=== PATIENT | female | born 2000 | race Caucasian/White ===

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

== ENCOUNTER 2021-07-23 14:17 | Emergency (ER) | payer OTHER, SELFPAY ==
--- OUTSIDE RECORDS SUMMARY | 2021-07-23 14:19 | XMS REPORT | Continuity of Care Document ---
:2000 Author Organization [facility] t Address [address] [place] [address] Dr. [address] [place] [address] Care Team Providers Name Role Phone Jose Maria Edouard MD Primary Care Physician TRA Attending Clinician Unavailable Dany BENITEZ Attending Clinician Unavailable Emmanuel PRYOR Attending Clinician Emmanuel KIMBLE N Attending Clinician Kaity SABA Attending Clinician Andrew Izquierdo Attending Clinician Jose Maria Edouard MD Attending Clinician 1, Lab Attending Clinician Unavailable Doctor Unassigned, Name Attending Clinician Unavailable Payers Payer Name Policy Type Policy Number Effective Date Expiration Date S [place] [employer] [id number] 2021 HEALTH 00:00:00 [place] [id number] 2019 WOMEN 00:00:00 Problems Condition Condition Condition Status Onset Resolution Last Treating Co mments Source Name Details Category Date Date Treatment Clinician Date Tobacco Tobacco Disease Active 2020-07 Univers use use 0-06 ity of 00:00: [place] [address] [facility] Fatigue, Fatigue, Disease Active 2020-07 Unive rs unspecifie unspecifie 0-06 it y of d type d type 00:00: [place] [facility] Easy Easy Disease Active 2020-07 Univers bruising bruising 0-06 ity of 00:00: [place] [address] [facility] Allergies, Adverse Reactions, Alerts Allergy Allergy Status Severity Reaction(s) Onset Inactive Treating Comm ents Source Name Type Date Date Clinician NO KNOWN Drug Active Univers ALLERGIE Class ity of [facility] Social History Social Habit Start Date Stop Date Quantity Comments Source History SDOH University o f Alcohol Frequency [place] [facility] History SDOH University o f Alcohol Std [place] [facility] Drinks Branch History SDOH University o f Alcohol Binge [place] [facility] Exposure to Not sure University of SARS-CoV-2 [facility] (event) Branch Tobacco use and 2021-04-16 2021-04-16 Never used Universit y of exposure [facility]:00:00 [facility] Alcohol Comment 2021-04-16 2021-04-16 social Universit y [facility] 00:00:00 [facility] Tobacco Comment 2021-04-16 2021-04-16 vapes Universit y of 00:00:00 00:00:00 [facility] Alcohol intake 2021-04-16 2021-04-16 Current drinker Unive rsity of 00:00:00 00:00:00 of alcohol [facility] (finding) [place] Sex Assigned At [birth year] Universit y [facility] 00:00:00 00:00:[facility] Smoking Status Start Date Stop Date Source Current every day smoker 2021-04-16 00:00:00 Uni versity [facility] Medications Ordered Filled Start Stop Current Ordering Indication Dosage Frequency Signature Comments Components Source Medication Medication Date Date Medication? Clinician (SIG) Name Name No known 2020-07 No Univers medications 0-06 ity of 13:53: [address] No known 2020-07 No Univers medications 0-06 ity of 13:53: [address] No known 2020-07 No Univers medications 0-06 ity of 13:53: [address] Immunizations Ordered Filled Immunization Date Status Comments Sourc e Immunization Name Name TDAP (ADACEL) 2019-01-26 Completed University of VACCINE 00:00:00 [facility] TDAP (ADACEL) 2019-01-26 Completed University of VACCINE 00:00:00 [facility] TDAP (ADACEL) 2019-01-26 Completed [facility] VACCINE 00:00:00 [facility] Influenza Virus 2018-09-06 Completed Universit y of Vaccine Quad .5 mL 00:00:00 [facility] 6+ [place] Branch Influenza Virus 2018-09-06 Completed Universit y of Vaccine [place] .5 mL 00:00:00 [facility] 6+ MO [place] Influenza Virus 2018-09-06 Completed Universit y of Vaccine [place] .5 mL 00:00:00 [facility] 6+ [place] Vital Signs Vital Name Observation Time Observation Value Comments Source Systolic blood 2021-04-16 18:49:00 124 mm[Hg] Univer sity of [facility] Diastolic blood 2021-04-16 18:49:00 78 mm[Hg[facility] Heart rate 2021-04-16 18:49:00 102 /min [facility] Body temperature 2021-04-16 18:49:00 36.5 Yesenia [facility] Respiratory rate 2021-04-16 18:49:00 18 /min [facility] Body height 2021-04-16 18:49:00 167.6 cm [facility] Body weight 2021-04-16 18:49:00 67.586 kg [facility] BMI 2021-04-16 18:49:00 24.05 kg/m2 [facility] Procedures Procedure Date / Time Performed Performing Clinician Sourc e POCT TEST 2021-04-16 19:21:00 Shama eBnitez [facility] Encounters Start End Encounter Admission Attending Care Care Encounter Source Date/Time Date/Time Type Type Clinicians Facility Department ID 2021-06-06 2021-06-06 Emergency [facility] [id number] 00:00:00 00:00:00 JONO [address] 2021-04-30 2021-04-30 Outpatient R EMMANUEL [facility] [id number] Univers 15:15:00 15:15:00 SHAMA [id number] anabel [facility] 2021-04-30 2021-04-30 Outpatient Ama BENITEZ [facility] [id number] Univers 15:15:00 15:15:00 SHAMA little [facility] 2021-04-17 2021-04-17 Telephone Emmanuel MIBRUCE [id number] Univers 00:00:00 00:00:00 Shama DRIER AND EVAPORATOR OPERATOR [id number] it y of [facility] [id number] Remy as MATERNAL [phone] [facility] ical & CHILD [address] [place] [address] 2021-04-16 2021-04-16 Office [facility] [id number] [facility] 13:38:41 14:26:57 Visit Shama Saenz DRIER AND EVAPORATOR OPERATOR [id number] it y [facility] [id number] Remy as MATERNAL [phone] [facility] & CHILD [address] [place] [address] 2021-04-16 2021-04-16 [facility] [id number] Univers 09:30:00 09:30:00 SHAMA [id number] [facility] 2021-04-16 2021-04-16 [facility] [id number] Univers 09:30:00 09:30:00 SHAMA little [facility] 2019-03-28 2019-03-28 [facility]ine [facility] [id number] 09:25:07 10:07:02 Miriam Wolf [id number] Visit [place] [id number] Professio [phone] [address] 2019-03-24 2019-03-24 [facility]ine [facility] [id number] 10:47:40 11:22:49 Miriam Wolf [id number] Visit [place] [id number] Professio [id number] [address] 2019-03-23 2019-03-23 Emergency [facility] [id number] 14:51:40 16:59:00 Roberto Carlos Wolf [id number] [place] [id number] [place] [id number] [id number] 2019-03-21 2019-03-21 Routine Michelle Edouard [facility] [id number] 11:02:32 11:48:59 Jose Maria Wolf [id number] Visit [place] [id number] Professio [id number] [address] 2019-03-21 2019-03-21 Telephone Michelle Edouard [facility] [id number] 00:00:00 00:00:00 Cam Luciano [id number] [place] [id number] Professio [id number] [address] 2019-03-16 2019-03-16 Chemical Compounder 1, Adc Lab [facility] [id number] 15:34:30 15:49:30 Visit Luciano [id number] [place] [id number] [place] [id number] [id number] 2019-03-15 2019-03-15 Routine Kaity [facility] [id number] 16:16:09 17:23:12 Miriam Luciano [id number] Visit [place] [id number] [phone] [address] 2019-03-15 2019-03-15 Orders Doctor CASEY [id number] 00:00:00 00:00:00 Only Unassigned, HENNY [id number] [place] [facility] [id number] [id number] Results Test Description Test Time Test Comments Results Result Comments Source POCT TEST 2021-04-16 19:21:00 Test Item Value Reference Range Interpretation Comme nts POCT PREG (test code = 1605) Negative On board controls acceptable with C Line (test code = 3574) Yes POCT PREG LOT # (test code = 3575) POCT PREG TEST DATE (test code = 3576) [id number] 19:21:00 Test Item Value Reference Range Interpretation Comments POCT PREG (test code = 1605) Negative On board controls acceptable with C Yes Line (test code = 3574) POCT PREG LOT # (test code = 3575) POCT PREG TEST DATE (test code = 3576) [facility]
--- NOTE | 2021-07-23 15:08 | ER ---
Nurse's Notes [facility] Name: Natacha Porter Age: 21 yrs Sex: Female : 2000 Arrival Date: 07/23/2021 Time: 14:21 Bed Waiting Private MD: Diagnosis: ED Course: 07/23 14:21 Patient arrived in ED. as Administered Medications: No medications were administered Outcome: 15:07 Patient left the ED. jl7 Signatures: Zainab William Jahala, RN RN jl7
== END 2021-07-23 15:07 | disposition left against medical advice (07) ==
LOC: ER 14:17
DX: Z02.9 Encounter for administrative examinations, unspecified (principal)

== ENCOUNTER 2022-01-26 18:53 | Emergency (ER) | payer OTHER ==
--- NOTE | 2022-01-26 21:44 | RAD REPORT ---
EXAM DESCRIPTION: US - Transvaginal OB - 01/26/2022 9:33 pm CLINICAL HISTORY: with abdominal pain COMPARISON: January 24, 2022 FINDINGS: The uterus measures 8 x 5 x 4 centimeters. A gestational sac measuring 8 x 2 x 5 millimet ers is present within the uterine body. It has migrated from the fundus since the prior exam. A pole is not demonstrated Neither ovary visualized secondary to overlying bowel gas The right and left adnexa unremarkable No significant free fluid IMPRESSION: Intrauterine with an estimated gestational age 5 weeks 2 days. The gestational sac has migrated from the fundus to the uterine body. I suspect this represents an impending abortio n. However, it is recommended that the patient have a followup endovaginal sonogram in 1 week for re- evaluation
--- NOTE | 2022-01-26 21:56 | ER ---
Nurse's Notes [facility] Name: Natacha Porter Age: 21 yrs Sex: Female : 2000 Arrival Date: 01/26/2022 Time: 19:32 Bed 27 Private MD: Diagnosis: Incomplete spontaneous without complication Presentation: 01/26 19:33 Chief complaint: Pt reports she is approx 5 weeks , seen in ED 2 days ago for hb vaginal bleeding, told to come back today for more tests. Reports heavy vaginal bleeding with clots since this morning. Coronavirus screen: At this time, the client does not indicate any symptoms associated with coronavirus-19. Ebola Screen: No symptoms or risks identified at this time. Risk Assessment: Do you want to hurt yourself or someone else? Patient reports no desire to harm self or others. Onset of symptoms was January 26, 2022. 19:33 Method Of Arrival: Ambulatory hb 19:33 Acuity: CARMEN 3 hb 21:05 Initial Sepsis Screen: Does the patient meet any 2 criteria? No. Patient's initial vc1 sepsis screen is negative. Does the patient have a suspected source of infection? No. Patient's initial sepsis screen is negative. Triage Assessment: 19:35 General: Appears in no apparent distress. Behavior is calm, cooperative. Pain: Pain hb currently is 10 out of 10 on a pain scale. Neuro: Level of Consciousness is awake, alert, obeys commands, Oriented to person, place, time, situation. Cardiovascular: Patient's skin is warm and dry. Respiratory: Respiratory effort is even, unlabored, Respiratory pattern is regular, symmetrical. : Reports vaginal bleeding that is bright red, with clots, heavy flow. CLERICAL ADVISER: 21:53 4, 2, Living 1, LMP 01/02/2022 kb Historical: - Allergies: 19:35 No Known Allergies; hb - PMHx: 19:35 acid reflux; Asthma; hb - Immunization history:: Adult Immunizations up to date. - Social history:: Smoking status: Patient denies any tobacco usage or history of. Screenin:04 Abuse screen: Denies threats or abuse. Nutritional screening: No deficits noted. vc1 Tuberculosis screening: No symptoms or risk factors identified. Fall Risk None identified. Assessment: 21:05 Obstetrical Assessment: General assessment: awake and alert. vc1 22:10 Reassessment: No changes from previously documented assessment. vc1 Vital Signs: 19:33 BP 116 / 64; Pulse 74; Resp 16; Temp 97.8; Pulse Ox 100% on R/A; Weight 72.57 kg; hb Height 5 ft. 5 in. (165.10 cm); Pain 10/10; 21:04 BP 104 / 66; Pulse 75; Pulse Ox 100% on R/A; vc1 19:33 Body Mass Index 26.63 (72.57 kg, 165.10 cm) hb Vitals: 21:05 Heart Tones Too early in , vaginal ultrasound ordered.. vc1 ED Course: 19:32 Patient arrived in ED. hb 19:35 Triage completed. hb 19:35 Arm band placed on. hb 19:36 Mariana Short FNP-C is PHCP. kb 19:36 Alexander Wolfe MD is Attending Physician. kb 19:51 Anamaria Arana RN is Primary Nurse. vc1 21:04 No provider procedures requiring assistance completed. Patient did not have IV access vc1 during this emergency room visit. 21:05 Patient has correct armband on for positive identification. Pulse ox on. NIBP on. vc1 21:36 US Transvaginal Ob In Process Unspecified. EDMS 21:45 Assist provider with pelvic exam: Set up pelvic tray. Performed by Mariana Short vc1 SURAJ Patient tolerated well. Administered Medications: No medications were administered Medication: 21:05 VIS not applicable for this client. vc1 Point of Care Testing: Urine : 21:06 hCG Reading: Positive; vc1 21:06 Done 01/25/22 in ER vc1 Outcome: 21:55 Discharge ordered by . kb 22:10 Discharged to home ambulatory, with significant other. vc1 22:10 Condition: good 22:10 Discharge instructions given to patient, significant other, Instructed on discharge instructions, follow up and referral plans. Demonstrated understanding of instructions, follow-up care. 22:11 Patient left the ED. vc1 Signatures: Dispatcher [employer] EDMS Mariana Short FNP-C FNP-Ckb Baxter, Heather, RN RN Anamaria Arana RN RN vc1
--- NOTE | 2022-01-26 21:56 | EDPHYS ---
Physician Documentation [facility] Name: Natacha Porter Age: 21 yrs Sex: Female : 2000 Arrival Date: 01/26/2022 Time: 19:32 Bed 27 Private MD: ED Physician Alexander Wolfe HPI: 01/26 21:53 This 21 yrs old Female presents to ER via Ambulatory with complaints of Vaginal kb Bleeding, + Preg <12wks. 21:53 The patient presents to the emergency department with vaginal bleeding, that is kb moderate, with clots. The estimated gestational age is 5 weeks. course: care: none, Leakage of Fluid: none appreciated, Ultrasound: the patient had an ultrasound. Previous pregnancies: in previous pregnancies patient has had. Associated signs and symptoms: Pertinent positives: vaginal bleeding. The patient has not experienced similar symptoms in the past. The patient has not recently seen a physician. Pt states she was told to return for repeat HCG today. States she has had bleeding that has progressed since her last visit. . 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 - Social history:: Smoking status: Patient denies any tobacco usage or history of. ROS: 20:41 Constitutional: Negative for fever, chills, and weight loss. kb 20:41 : Positive for vaginal bleeding. 20:41 All other systems are negative. Exam: 20:42 Constitutional: This is a well developed, well nourished patient who is awake, alert, kb and in no acute distress. Head/Face: Normocephalic, atraumatic. ENT: Moist Mucous membranes Cardiovascular: Regular rate and rhythm with a normal S1 and S2. No gallops, murmurs, or rubs. No pulse deficits. Respiratory: Respirations even and unlabored. No increased work of breathing. Talking in full sentences Abdomen/GI: Soft, non-tender. No distention Skin: Warm, dry with normal turgor. Normal color. MS/ Extremity: Pulses equal, no cyanosis. Neurovascular intact. Full, normal range of motion. Neuro: Awake and alert, GCS 15, oriented to person, place, time, and situation. Moves all extremities. Normal gait. Psych: Awake, alert, with orientation to person, place and time. Behavior, mood, and affect are within normal limits. 21:52 : Pelvic Exam: External exam: is normal, Speculum exam: mild bleeding, no cervicitis, kb os that is open, no tissue in cervix is seen, no tissue in vagina is seen, discharge, bloody, the nurse was present for the exam. Vital Signs: 19:33 BP 116 / 64; Pulse 74; Resp 16; Temp 97.8; Pulse Ox 100% on R/A; Weight 72.57 kg; hb Height 5 ft. 5 in. (165.10 cm); Pain 10/10; 21:04 BP 104 / 66; Pulse 75; Pulse Ox 100% on R/A; vc1 19:33 Body Mass Index 26.63 (72.57 kg, 165.10 cm) hb MDM: 19:51 Patient medically screened. kb 20:42 Data reviewed: vital signs, nurses notes. Data interpreted: Pulse oximetry: on room air kb is 100 %. Interpretation: normal. 21:52 Counseling: I had a detailed discussion with the patient and/or guardian regarding: the kb historical points, exam findings, and any diagnostic results supporting the discharge/admit diagnosis, lab results, radiology results, the need for outpatient follow up, an OB/Gyne specialist, to return to the emergency department if symptoms worsen or persist or if there are any questions or concerns that arise at home. ED course: Pt will call Dr Edouard tomorrow for follow up. Educated on return precautions. 01/26 19:35 Order name: HCG-Quantitative; Complete Time: 20:40 rn 01/26 20:36 Order name: US Transvaginal Ob; Complete Time: 21:52 kb 01/26 21:30 Order name: Pelvic Exam Setup; Complete Time: 22:09 kb Administered Medications: No medications were administered Point of Care Testing: Urine : 21:06 hCG Reading: Positive; vc1 21:06 Done 01/25/22 in ER vc1 Disposition: 23:04 Co-signature as Attending Physician, Alexander Wolfe MD. rn Disposition Summary: 01/26/22 21:55 Discharge Ordered Location: Home kb Condition: Stable kb Diagnosis - Incomplete spontaneous without complication kb Followup: kb - With: Emergency Department - When: As needed - Reason: Worsening of condition Followup: kb - With: Private Physician - When: 2 - 3 days - Reason: Recheck today's complaints, Continuance of care, Re-evaluation by your physician Discharge Instructions: - Discharge Summary Sheet kb - Incomplete Miscarriage kb - Miscarriage, [id number] kb Forms: - Medication Reconciliation Form kb - Thank You Letter kb - Antibiotic Education kb - Prescription Opioid Use kb Signatures: Dispatcher [employer] EDMS Mariana Short, SHYANNE-C SHYANNE-Alexander De aPz MD MD rn Adriana Orozco RN RN Corrections: (The following items were deleted from the chart) 21:52 21:52 ED course: Pt will call Dr Edouard tomorrow for follow up. kb kb 21:53 21:52 : Pelvic Exam: External exam: is normal, Speculum exam: mild bleeding, no kb cervicitis, os that is open, discharge, bloody, the nurse was present for the exam, kb
[2022-01-26 22:59] VITALS: TEMP 97.8; O2SAT 100
[2022-01-26 23:00] VITALS: BP 104/66
== END 2022-01-26 22:11 | disposition home or self-care (01) ==
LOC: ER 18:53
DX: O03.4 Incomplete spontaneous abortion without complication (principal); Z3A.01 Less than 8 weeks gestation of pregnancy
CPT/HCPCS: 36415; 76817; 84702; 99284

== ENCOUNTER 2022-03-07 11:33 | Emergency (ER) | payer OTHER ==
--- OUTSIDE RECORDS SUMMARY | 2022-03-07 11:37 | XMS REPORT | Continuity of Care Document ---
:2000 Author Organization [facility] t Address [address] [place] [address] Dr. Bacon. [address] [place] [address] Care Team Providers Name Role Phone SANDIP MARIE Primary Care Physician Unavailable DANIEL MATHIS Attending Clinician Unavailable LENORA DANIEL Attending Clinician Unavailable LENORA DANIEL Attending Clinician Unavailable BERTIN MCKINNEY Attending Clinician Unavailable CHRIS SANCHEZ Attending Clinician Unavailable Chris Suh F Attending Clinician LAINE AMBROCIO Attending Clinician Unavailable Laine Ward Attending Clinician Jono Samayoa MD Attending Clinician SHAMA BENITEZ Attending Clinician Unavailable Shama Benitez MD Attending Clinician Shama Tubbs Attending Clinician Miriam Briceno PA-C Attending Clinician Roberto Carlos Izquierdo Attending Clinician Sandip Mraie MD Attending Clinician 1, [facility] Attending Clinician Unavailable Doctor Unassigned, [place] Attending Clinician Unavailable Payers Payer Name Policy Type Policy Number Effective Date Expiration Date S [place] [id number] 2020 HEALTH 00:00:00 [facility] [id number] 2019 WOMEN 00:00:00 Problems Condition Condition Condition Status Onset Resolution Last Treating Co mments Source Name Details Category Date Date Treatment Clinician Date Tobacco Tobacco Disease Active 2020-07 Univers use use 0-06 ity of 00:00: [place] [address] [place] Fatigue, Fatigue, Disease Active 2020-07 Unive rs unspecifie unspecifie 0-06 it y of d type d type 00:00: [place] [facility] Easy Easy Disease Active 2020-07 Univers bruising bruising 0-06 ity of 00:00: [place] [address] [place] Allergies, Adverse Reactions, Alerts Allergy Allergy Status Severity Reaction(s) Onset Inactive Treating Comm ents Source Name Type Date Date Clinician Clindamy Propensi Active Rash 2020-07 Method i severiano ty to 08-06 st adverse 00:00: [facility]osp[facility] reaction 00 l s to drug NO KNOWN Drug Active Univers ALLERGIE Class ity of S [facility] Social History Social Habit Start Date Stop Date Quantity Comments Source History SDOH University o f Alcohol Frequency [place] [facility] History SDOH University o f Alcohol Std [place] [facility] Dr[place] [facility] History SDMT University o f Alcohol Binge [place] [facility] Alcohol intake 2021-11-17 2021-11-17 Current drinker Unive rsity of 00:00:00 00:00:00 of alcohol [facility] (finding) Branch Exposure to 2021-11-06 2021-11-16 Not sure University SARS-CoV-2 00:00:00 22:02:00 [facility] (event) [place] Tobacco use and 2021-04-16 2021-04-16 Never used Universit y of exposure 00:00:00 00:00:00 [facility] Alcohol Comment 2021-04-16 2021-04-16 social Universit y of 00:00:00 00:00:00 [facility] Tobacco Comment 2021-04-16 2021-04-16 vapes Universit y of 00:00:00 00:00:00 [facility] Sex Assigned At 2000 2000 [facility] 00:00:00 00:00:00 Smoking Status Start Date Stop Date Source Tobacco smoking consumption Meth [facility] unknown Current every day smoker 2021-04-16 00:00:00 Uni versity of [facility] Medications Ordered Filled Start Stop Current Ordering Indication Dosage Frequency Signature Comments Components Source Medication Medication Date Date Medication? Clinician (SIG) Name Name metroNIDAZO 2021- No [id number] 500mg Take 1 Univers LE (FLAGYL) 11-17 tablet by it y of 500 mg 00:00: 04:59 mouth [place] tablet 00 :00 every 12 Medical (twelve) Branch hours for 7 days. doxycycline 2021- No 100mg 100 mg, U nivers hyclate 07-24 Oral, ity of (Vibramycin 01:15[place] 00[place]52 [place] capsule [place] :00 dose, On Medica l 100 mg Wed Branch 07/23/21 at 1915, DARRYL
Re ason for Anti-Infec tive: Empiric Therapy for Suspected Infection< br>Empiric Therapy Site: Pelvic
Duration of therapy: 72 hours metroNIDAZO 2021- No 500mg 500 mg, U naveen LE (FLAGYL) 07-24 Oral, ity of tablet 500 01:15: 00:16 ONCE, 1 [place] as mg 00 :00 dose, On Medical Wed Branch 07/23/21 at 1915, Routine
Reason for Anti-Infec tive: Empiric Therapy for Suspected Infection< br>Empiric Therapy Site: Pelvic
Duration of therapy: 7 days ondansetron 2021- No 4mg 4 mg, Univ ers (ZOFRAN-ODT 07-23 Oral, ity of ) 23:15: 00:15 ONCE, 1 [place] disintegrat 00 :00 dose, On Medi mis ing tablet Wed Branch 4 mg 07/23/21 at 1715, Routine penicillin 2021- No 2.410 2.4 Unive rs g 07-23 Million ity of benzathine 23:15: 00:18 Units, [place] (BICILLIN 00 :00 Intramuscu Medi mis L-A) lar, ONCE, Branch injection 1 dose, On 2.4 Million Wed Units 07/23/21 at 1715, DARRYL
Re ason for Anti-Infec tive: Empiric Therapy for Suspected Infection< br>Empiric Therapy Site: Pelvic
Duration of therapy: 72 hours cefTRIAXone 2021- No 500mg 500 mg, U nivers (ROCEPHIN) 07-23 Intramuscu it y of injection 23:15: 00:16 lar, ONCE, [place] 500 mg 00 :00 1 dose, On Medical Wed Branch 07/23/21 at 1715, DARRYL
Re ason for Anti-Infec tive: Empiric Therapy for Suspected Infection< br>Empiric Therapy Site: Pelvic
Duration of therapy: 72 hours metroNIDAZO Yes [id number] 500mg Take 1 Univers LE 500 mg 1-12 tablet by ity o f tablet 00:00: mouth 2 00 (two) Medical times Branch daily. doxycycline Yes [id number] 100mg Take 1 Univers hyclate 100 1-12 capsule by it y of mg capsule 00:00: [place] (two[place] Medical times Branch daily. metroNIDAZO Yes [id number] 500mg Take 1 Univers LE 500 mg 1-12 tablet by ity o f tablet 00:00: mouth 2 00 (two) Medical times Branch daily. doxycycline Yes [id number] 100mg Take 1 Univers hyclate 100 1-12 capsule by it y of mg capsule 00:00: mouth [place] (two) Medical times Branch daily. cephalexin 2020-07- No 500mg Q.5D Take 1 Met hodi (Keflex) 08-[address] 500 MG 00:00: 05:59 (500 mg Hospita capsule 00 :00 total) by l mouth 2 (two) times a day for 7 days. No known 2020-07 No Univers medications 0-06 ity of 13:53: [address] No known 2020-07 No Univers medications 0-06 ity of 13:53: [address] No known 2020-07 No Univers medications 0-06 ity of 13:53: [address] Immunizations Ordered Filled Immunization Date Status Comments [facility] e Immunization Name Name TDAP (ADACEL) 2019-01-26 Completed [facility] of VACCINE 00:00:00 [facility] TDAP (ADACEL) 2019-01-26 Completed [facility] of VACCINE 00:00:00 [facility] TDAP (ADACEL) 2019-01-26 Completed [facility] VACCINE 00:00:00 [facility] TDAP (ADACEL) 2019-01-26 Completed University of VACCINE 00:00:00 [facility] TDAP (ADACEL) 2019-01-26 Completed University of VACCINE 00:00:00 [facility] Influenza Virus 2018-09-06 Completed Universit y of Vaccine Quad .5 mL 00:00:00 [facility] IM 6+ [place] Branch Influenza Virus 2018-09-06 Completed Universit y of Vaccine [place] .5 mL 00:00:00 [facility] IM 6+ [place] Branch Influenza Virus 2018-09-06 Completed Universit y of Vaccine [place] .5 mL 00:00:00 [facility] IM 6+ [place] Branch Influenza Virus 2018-09-06 Completed Universit y of Vaccine [place] .5 mL 00:00:00 [facility] IM 6+ [place] Branch Influenza Virus 2018-09-06 Completed Universit y of Vaccine [place] .5 mL 00:00:00 [facility] 6+ [place] Vital Signs Vital Name Observation Time Observation Value Comments Source Systolic blood 2021-11-17 03:06:00 118 mm[Hg] Univer sity of pressure [facility] Diastolic blood 2021-11-17 03:06:00 62 mm[Hg] Unive rsity of [facility] Heart rate 2021-11-17 03:06:00 78 /min [facility] Body temperature 2021-11-17 03:06:00 36.33 Yesenia [facility] Respiratory rate 2021-11-17 03:06:00 16 /min [facility] Body height 2021-11-17 03:06:00 167.6 cm [facility] Body weight 2021-11-17 03:06:00 71.94 kg [facility] BMI 2021-11-17 03:06:00 25.60 kg/m2 [facility] Oxygen saturation in 2021-11-17 03:06:00 100 /min [facility] Arterial blood by [facility] Pulse oximetry Branch Systolic blood 2021-07-23 21:46:00 120 mm[Hg] Univer sity of pressure [facility] Diastolic blood 2021-07-23 21:46:00 66 mm[Hg] Unive rsity of pressure [facility] Heart rate 2021-07-23 21:46:00 86 /min Universi ty of [place] [facility] [place] Body temperature 2021-07-23 21:46:00 36.72 Yesenia Univ ersity of [facility] Respiratory rate 2021-07-23 21:46:00 16 /min Univ ersity of [facility] Oxygen saturation in 2021-07-23 21:46:00 100 /min University of Arterial blood by [facility] Pulse oximetry Branch Body weight 2021-07-23 21:45:00 68.04 kg Universi ty of [place] [facility] [place] BMI 2021-07-23 21:45:00 24.21 kg/m2 Universi ty of [facility] Systolic blood 2021-04-16 18:49:00 124 mm[Hg] Univer sity of pressure [facility] Diastolic blood 2021-04-16 18:49:00 78 mm[Hg] Unive rsity of pressure [facility] Heart rate 2021-04-16 18:49:00 102 /min Universi ty of [facility] Body temperature 2021-04-16 18:49:00 36.5 Yesenia Univ ersity of [facility] Respiratory rate 2021-04-16 18:49:00 18 /min Univ ersity of [facility] Body height 2021-04-16 18:49:00 167.6 cm Universi ty of [facility] Body weight 2021-04-16 18:49:00 67.586 kg Universi ty of [place] [facility] [place] BMI 2021-04-16 18:49:00 24.05 kg/m2 Universi ty of [facility] Systolic blood 2021-06-07 03:30:00 107 mm[Hg] Method [facility] pressure Diastolic blood 2021-06-07 03:30:00 55 mm[Hg] [facility] pressure Heart rate 2021-06-07 03:30:00 78 /min [facility] Oxygen saturation in 2021-06-07 03:30:00 99 /min [facility] Arterial blood by Pulse oximetry Body temperature 2021-06-07 01:02:52 36.72 Yesenia [facility] Respiratory rate 2021-06-07 01:02:52 18 /min [facility] Body height 2021-06-07 01:00:[address] [facility] Body weight 2021-06-07 01:00:[address] [facility] BMI 2021-06-07 01:00:00 24.21 kg/m2 [facility] Procedures Procedure Date / Time Performing Clinician Source Performed URINALYSIS 2021-11-17 04:22:00 [facility] POCT TEST 2021-11-17 04:11:00 Chris Sanchez [facility] NOTICE OF PRIVACY 2021-11-17 02:38:53 Doctor Unaabby, [facility] CONS[facility]REFUSAL FOR 2021-11-17 02:38:39 Doctor Unasshemant, [facility] DIAGNOSIS AND TREATMENT [facility] URINALYSIS 2021-07-23 22:22:00 Laine Ambrocio [facility] CONSENT/REFUSAL FOR 2021-07-23 21:34:17 Doctor Unaabby, [facility] DIAGNOSIS AND TREATMENT [facility] NOTICE OF PRIVACY 2021-07-23 21:34:01 Doctor Shahrzad, [facility] PRACTICES [facility] ED REFERRAL TO [place] 2021-06-07 03:28:11 [facility] MU-ISM PHYSICIAN ORGANIZATION ECG ED PRELIMINARY 2021-06-07 02:10:24 [facility] INTERPRETATION LACTIC ACID LEVEL, SEPSIS 2021-06-07 01:50:00 SamayoaJono mauro [facility] - NOW AND REPEAT 2X EVERY 3 HOURS URINE CULTURE 2021-06-07 01:47:00 Jono Samayoa spital HC COMPLETE BLD COUNT 2021-06-07 01:45:00 [facility] W/AUTO DIFF BASIC METABOLIC PANEL 2021-06-07 01:45:00 [facility] LIPASE LEVEL 2021-06-07 01:45:00 WolfordJono spital HEPATIC FUNCTION PANEL 2021-06-07 01:45:00 [facility] TROPONIN T 2021-06-07 01:45:00 Jono Samayoa spital PHOSPHORUS LEVEL 2021-06-07 01:45:00 Jono Samayoa ospital MAGNESIUM LEVEL 2021-06-07 01:45:00 Jono Samayoa spital CREATINE KINASE, TOTAL 2021-06-07 01:45:00 [facility] (CPK) ESTIMATED GFR 2021-06-07 01:45:00 Jono Samayoa spital ECG 12-LEAD 2021-06-07 01:10:42 Jono Samayoa spital URINALYSIS SCREEN AND 2021-06-07 01:06:00 Jono Sam[facility]oa [facility] Hospital MICROSCOPY, WITH REFLEX TO CULTURE HCG QUALITATIVE, URINE 2021-06-07 01:06:00 [facility] SCREEN POC GLUCOSE 2021-06-07 01:04:00 Jono Samayoa spital POCT TEST 2021-04-16 19:21:00 Shama Benitez [facility] Encounters Start End Encounter Admission Attending Care Care Encounter Source Date/Time Date/Time Type Type Clinicians Facility Department ID 2022-03-04 2022-03-04 Outpatient R DELFINA [facility] [id number] Univers 13:30:00 13:30:00 DANIEL [id number] [facility] 2022-03-04 2022-03-04 Outpatient R MATHIS [facility] [id number] Univers 13:30:00 13:30:00 PAULINONDA [facility] 2022-01-28 2022-01-28 Outpatient R [facility] [id number] Univers 15:00:00 15:00:00 [id number] [facility] 2022-01-28 2022-01-28 Outpatient R FREDY LENORA [facility] [id number] Univers 15:00:00 15:00:00 LENORA DANIEL [facility] 2021-12-16 2021-12-16 Outpatient R FAYE [facility] [id number] Univers 08:15:00 08:15:00 BERTIN [id number] [facility] 2021-12-16 2021-12-16 [facility] [id number] Univers 08:15:00 08:15:00 BERTIN ity o [facility] 2021-12-05 2021-12-05 Outpatient R AKINSIPE, [facility] [id number] Univers 08:30:00 08:30:00 BERTIN [id number] ity o [facility] 2021-12-05 2021-12-05 Outpatient R AKINSIPE, [facility] [id number] Univers 08:00:00 08:00:00 BERTIN ity o [facility] 2021-11-16 2021-11-17 Emergency X IBBUBBALE, [facility] ERT [id number] Univers 22:11:00 01:15:00 CHRIS [facility] 2021-11-16 2021-11-17 Emergency Ibikunteetee, [facility] [id number] Univers 22:11:00 01:15:00 Chris Melton [id number] 4.2.7.2.[address] [facility] [id number] [place] [address] Branch 2021-08-07 2021-08-07 Outpatient R MATHIS, [facility] [id number] Univers 10:45:00 10:45:00 PAULINONDA [id number] ity o [facility] 2021-08-07 2021-08-07 Outpatient R DELFINA, [facility] [id number] Univers 10:45:00 10:45:00 ROSHUNDA ity o [facility] 2021-07-31 2021-07-31 Outpatient R AKINSIPE, [facility] [id number] Univers 09:45:00 09:45:00 BERTIN [id number] ity o [facility] 2021-07-31 2021-07-31 Outpatient R AKINSIPE, [facility] [id number] Univers 09:45:00 09:45:00 BERTIN ity o [facility] 2021-07-23 2021-07-23 Emergency [facility] [id number] Univers 15:46:00 18:59:00 LAINE [facility] 2021-07-23 2021-07-23 Emergency [facility] [id number] Univers 15:46:00 18:59:00 Laine GOODE [id number] i [facility] 4.2.7.2.[address] [facility] [phone] [address] 2021-06-06 2021-06-06 Emergency Samayoa, 1.2.840.1 [id number] Methodi 19:08:00 21:42:[address] 3.430.2.7 Hospit a .[id number] l .8 2021-06-06 2021-06-06 Travel 1.2.840.1 [id number] Methodi 00:00:00 00:00:[address] 3.430.2.7 0.2.7.3.698 Ho spita .[id number] 084.8 l .8 2021-06-06 2021-06-06 Emergency TRA, [facility] [id number] Lyle 00:00:00 00:00:00 JONO [address] 2021-04-30 2021-04-30 [facility] [id number] Univers 15:15:00 15:15:00 SHAMA [id number] [facility] 2021-04-30 2021-04-30 Outpatient Ama BENITEZ [facility] [id number] Univers 15:15:00 15:15:00 SHAMA little [facility] 2021-04-17 2021-04-17 [facility]phone [facility] [id number] Univers 00:00:00 00:00:00 Shama 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 [id number] [facility] 4.2.7.2.686 Remy as MATERNAL [id number] Med ical & CHILD [address] [place] [address] 2021-04-16 2021-04-16 Office [facility] [id number] Univers 13:38:41 14:26:57 Visit Shama Saenz 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 350.1.13.10 it y of [facility] 4.2.7.2.686 Remy as MATERNAL [id number] Med ical & CHILD [address] [place] [address] 2021-04-16 2021-04-16 Outpatient Ama BENITEZ [facility] [id number]-[id number] Univers 09:30:00 09:30:00 SHAMA [id number] [facility] 2021-04-16 2021-04-16 Outpatient Ama BENITEZ [facility] [id number] Univers 09:30:00 09:30:00 SHAMA little [facility] 2019-03-28 2019-03-28 Routine [facility] [id number] 09:25:07 10:07:02 Miriam Goode 350.1.13.10 Visit [place] 4.2.7.2.686 Professio [id number] [address] 2019-03-24 2019-03-24 Routine [facility] [id number] 10:47:40 11:22:49 Miriam Goode 350.1.13.10 Visit [place] 4.2.7.2.686 Professio [id number] [address] 2019-03-23 2019-03-23 Emergency [facility] [id number] 14:51:40 16:59:00 Roberto Carlos Goode 350.1.13.10 [place] 4.2.7.2.686 [place] [id number] 2019-03-21 2019-03-21 Routine Sandip Marie [facility] [id number] 11:02:32 11:48:59 Jose Maria Goode 350.1.13.10 Visit [place] 4.2.7.2.686 Professio [id number] [address] 2019-03-21 2019-03-21 Telephone Sandip Marie [facility] 1.2.840.114 [id number] 00:00:00 00:00:00 Cam Luciano 350.1.13.10 [place] 4.2.7.2.686 Professio [id number] [address] 2019-03-16 2019-03-16 Vacuum Tester Cans 1, Adc Lab [facility] 1.2.840.114 [id number] 15:34:30 15:49:30 Visit Luciano 350.1.13.10 [place] 4.2.7.2.686 [place] [id number] 2019-03-15 2019-03-15 Routine Vanaphan, [facility] [id number] 16:16:09 17:23:12 Miriam Goode 350.1.13.10 Visit [place] 4.2.7.2.686 [facility] [id number] [address] 2019-03-15 2019-03-15 Orders Doctor CASEY 1.2.840.114 [id number] 00:00:00 00:00:00 Only Unassigned, HENNY 350.1.13.10 [place] [facility] 4.2.7.2.686 [id number] Results Test Description Test Time Test Comments Results Result Comments Source POCT TEST 2021-11-17 04:11:00 Test Item Value Reference Range Interpretation Comme nts POCT PREG (test code = 1605) Negative On board controls acceptable with C Line (test code = 3574) Negativ e POCT PREG LOT # (test code = 3575) [id number] POCT PREG TEST DATE (test code = 3576) 04/10/23 Lab Interpretation (test code = 07443-9) Normal [place] [id number] [id number] 00:08:58 Test Item Value Reference Range Interpretation Comments Ventricular rate (test code = 253) Atrial rate (test code = 255) AL interval (test code = 266) QRSD interval (test code = 260) QT interval (test code = 264) QTC interval (test code = 265) P axis 1 (test code = 267) QRS axis 1 (test code = 268) T wave axis (test code = 270) EKG impression (test Normal sinus code = 273) rhythm-Rightward axis-Borderline ECG-No previous ECGs available-Electronica lly Signed By Bren Hazel MD ([id number]) on 07/02/2021 6:08:56 PM [facility] [id number] 12:47:38 Test Item Value Reference Range Interpretation Comments Urine culture Mixed arielle Specimen isolate (test <=10-3 col/cc InformationSp ecimen code = 98383-0) Source: Urin eSpecimen Site: Clean cat ch [facility] ED Preliminary Interpretation - Not an [id number] 02:10:24 Test Item Value Reference Range Interpretation Comments ABDIRAHMAN (test code = ABDIRAHMAN) Jono Samayoa MD 06/06/2021 9:29 [facility] ED Preliminary Interpretation - Not an OrderPerformed by: Jono Samayoa MDAuthorized by: Jono Samayoa MD ECG reviewed by ED Physician in the absence of a swatch paster: yes Interpretation: Interpretation: abnormal Rate: ECG rate: 77 ECG rate assessment: normal Rhythm: Rhythm: sinus rhythm Ectopy: Ectopy: none QRS: QRS axis: Right QRS intervals: NormalConduction: Conduction: normal ST segments: ST segments: NormalT waves: T waves: normal Lab Interpretation Abnormal (test code = 40051-4) [facility] [id number] 01:10:20 Test Item Value Reference Range Interpretation Comments POC glucose (test 86 mg/dL 65-100 Platform Worker N le: Matthew code = 27208-4) Chris johnson ID: [id number] [facility] [id number] 19:21:00 Test Item Value Reference Range Interpretation Comments POCT PREG (test code = 1605) Negative On board controls acceptable with C Yes Line (test code = 3574) POCT PREG LOT # (test code = 3575) POCT PREG TEST DATE (test code = 3576) [id number] 19:21:00 Test Item Value Reference Range Interpretation Comments POCT PREG (test code = 1605) Negative On board controls acceptable with C Yes Line (test code = 3574) POCT PREG LOT # (test code = 3575) POCT PREG TEST DATE (test code = 3576) [facility]
[2022-03-07] MEDS ORDERED: ACETAMINOPHEN 500 MG TAB ONE (12:21)
[2022-03-07] MEDS ORDERED: LIDOCAINE 1% W/EPI 1:100,000 MDV 50 ML VIAL ONE (12:56)
[2022-03-07] MEDS ORDERED: LORAZEPAM 1 MG TABLET ONE (12:56)
[2022-03-07] MEDS ORDERED: BUPIVACAINE 0.5% PF 10 ML VIAL ONE (12:56)
--- NOTE | 2022-03-07 13:05 | RAD REPORT ---
EXAM DESCRIPTION: RAD - Foot Right 2 View - 03/07/2022 12:49 pm CLINICAL HISTORY: stepped on needle COMPARISON: No comparisons FINDINGS/IMPRESSION: Sewing needle retained within the soft tissues of the hindfoot at the plantar s urface and likely embedded in the calcaneus bone.
[2022-03-07] MEDS ORDERED: TETANUS & DIPHTHERIA TOX,ADULT 0.5 ML VIAL ONE (14:50)
--- NOTE | 2022-03-07 15:20 | EDPHYS ---
Physician Documentation [facility] Name: Natacha Porter Age: 21 yrs Sex: Female : 2000 Arrival Date: 03/07/2022 Time: 11:35 Bed 30 Private MD: ED Physician Alexander Wolfe HPI: 03/07 12:00 This 21 yrs old Female presents to ER via Wheelchair with complaints of Foreign Body - cp needle in foot. 12:00 The patient or guardian reports the patient has a suspected foreign body, of the heel cp of right foot. The reported likely foreign body is sewing needle. Onset: The symptoms/episode began/occurred yesterday. Current symptoms: foreign body sensation, pain, in the area of the foreign body. 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 - Social history:: Smoking status: Reported history of juuling and/or vaping. ROS: 12:05 Constitutional: Negative for body aches, chills, fever, poor PO intake. cp 12:05 Eyes: Negative for injury, pain, redness, and discharge. cp 12:05 Cardiovascular: Negative for chest pain. 12:05 Respiratory: Negative for cough, shortness of breath, wheezing. 12:05 Abdomen/GI: Negative for abdominal pain, nausea, vomiting, and diarrhea. 12:05 MS/extremity: Positive for pain, tenderness, of the heel of right foot, Negative for paresthesias. 12:05 Skin: Positive for puncture, of the heel of right foot. 12:05 Neuro: Negative for headache, weakness. 12:05 All other systems are negative. Exam: 12:10 Constitutional: The patient appears in no acute distress, alert, awake, well developed, cp well nourished. 12:10 Head/Face: Normocephalic, atraumatic. cp 12:10 Chest/axilla: Inspection: normal. 12:10 Cardiovascular: Rate: normal, Rhythm: regular. 12:10 Respiratory: the patient does not display signs of respiratory distress, Respirations: normal, no use of accessory muscles, no retractions, labored breathing, is not present. 12:10 Abdomen/GI: Inspection: abdomen appears normal. 12:10 Back: pain, is absent, ROM is normal. 12:10 Skin: injury, that can be described as foreign body containing, without bleeding, xrays of right foot show metallic foreign body, puncture(s), that are deep, of the heel of right foot. 12:10 Neuro: Orientation: to person, place \T\ time. Mentation: is normal, Motor: moves all fours, strength is normal, Sensation: is normal. Vital Signs: 11:44 BP 121 / 67; Pulse 110; Resp 16; Temp 97.9(TE); Pulse Ox 100% on R/A; Weight 73.03 kg; ss Height 5 ft. 5 in. (165.10 cm); Pain 7/10; 14:52 Pulse 82; Resp 16; Pulse Ox 100% on R/A; Pain 0/10; ss 11:44 Body Mass Index 26.79 (73.03 kg, 165.10 cm) ss Procedures: 14:35 Foreign Body Removal: sewing needle, from the right heel of right foot, by incising to rn remove, using lidocaine 1% with epinephrine to anesthesize the area, tweezers, Dressinx4s were used to dress the wound, The patient tolerated the removal well, Using ultrasound guidance. MDM: 11:55 Patient medically screened. cp 15:19 Data reviewed: vital signs, nurses notes, radiologic studies, plain films. cp 15:19 Test interpretation: by ED physician or midlevel provider: plain radiologic studies. cp Counseling: I had a detailed discussion with the patient and/or guardian regarding: the historical points, exam findings, and any diagnostic results supporting the discharge/admit diagnosis, radiology results, to return to the emergency department if symptoms worsen or persist or if there are any questions or concerns that arise at home. Response to treatment: the patient's symptoms have markedly improved after treatment, and as a result, I will discharge patient. Special discussion: I discussed in detail with the patient the higher chance of wound infection based on his presenting history. 03/07 11:55 Order name: XRAY Foot RIGHT 2 View cp 03/07 14:54 Order name: XRAY Foot RIGHT 2 View cp 03/07 12:36 Order name: Dressing - Wound; Complete Time: 14:53 cp 03/07 12:36 Order name: Gloves, Sterile; Complete Time: 14:00 cp 03/07 12:36 Order name: Setup Suture Tray; Complete Time: 13:29 cp 03/07 15:14 Order name: Post-op shoe; Complete Time: 15:25 cp 03/07 15:14 Order name: Wound dressing; Complete Time: 15:16 cp 03/07 15:14 Order name: Crutches; Complete Time: 15:25 cp Administered Medications: 12:14 Drug: Tylenol 1000 mg Route: PO; ss 14:50 Follow up: Response: No adverse reaction ss 12:50 Drug: Ativan (LORazepam) 1 mg Route: PO; ss 14:49 Follow up: Response: No adverse reaction; Anxiety decreased ss 13:59 Drug: Lidocaine-Epinephrine -1%: (1:100,000) 10 ml {Note: Administered now by ZANE Rhodes} Volume: 20 ml; Route: Infiltration; 13:59 Drug: Marcaine (bupivacaine) (0.5 %) 10 ml {Note: administered by PA. 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 Lot #: [id number]. } Route: IM; Site: left deltoid; 14:50 Follow up: Response: (VIS) Vaccine information sheet provided today. Questions and/or ss concerns addressed. VIS edition date: Feb 14, 2021. 15:38 Drug: Clindamycin 300 mg Route: PO; ss 15:38 Follow up: Response: Medication administered at discharge. ss Disposition Summary: 03/07/22 15:19 Discharge Ordered Location: Home cp Problem: new cp Symptoms: have improved cp Condition: Stable cp Diagnosis - Puncture wound with foreign body, right foot cp Followup: cp - With: Private Physician - When: 2 - 3 days - Reason: Wound Recheck Discharge Instructions: - Discharge Summary Sheet cp - Puncture Wound cp - Hand or Foot Foreign Body, Adult cp Forms: - Medication Reconciliation Form cp - Thank You Letter cp - Antibiotic Education cp - Prescription Opioid Use cp Prescriptions: - Clindamycin HCl 300 mg Oral Capsule - take 1 capsule by ORAL route every 6 hours for 10 days; 40 capsule; Refills: 0, cp Product Selection Permitted - Ibuprofen 800 mg Oral Tablet - take 1 tablet by ORAL route every 8 hours As needed take with food; 30 tablet; cp Refills: 0, Product Selection Permitted - Tylenol-Codeine #3 300 mg-30 mg Oral - take 2 tablet by ORAL route every 8-10 hours; 14 tablet; Refills: 0, Product cp Selection Permitted Addendum: 03/08/2022 17:16 Co-signature as Attending Physician, Alexander Wolfe MD. r n Signatures: Dispatcher [employer] [facility] Alexander Wolfe MD MD rn Tati Allen RN RN ss Jr Wiseman PA PA cp Corrections: (The following items were deleted from the chart) 03/07 15:14 14:36 Ankle Right 2 View+RAD.[email or web address] ordered. [facility] 03/08 10:03/06 12:00 This 21 yrs old Female presents to ER via Wheelchair with complaints of cp Foreign Body - needle in foot. cp 03/08 10:03/06 12:00 The patient or guardian reports the patient has a suspected foreign body, cp of the heel of right foot, cp 03/08 10:03/06 12:00 The reported likely foreign body is sewing needle, cp cp 03/08 12:00 Onset: The symptoms/episode began/occurred yesterday, cp cp 03/08 12:00 Current symptoms: foreign body sensation, pain, in the area of the foreign cp body, cp
--- NOTE | 2022-03-07 15:20 | ER ---
Nurse's Notes [facility] Name: Natacha Porter Age: 21 yrs Sex: Female : 2000 Arrival Date: 03/07/2022 Time: 11:35 Bed 30 Private MD: Diagnosis: Puncture wound with foreign body, right foot Presentation: 03/07 11:44 Chief complaint: Patient states: "I think I stepped on a sewing needle last night, we ss tried to get it out, but couldn't." Puncture wound noted to R heel. No obvious foreign body noted. Coronavirus screen: Client denies travel out of the [place] in the last 14 days. Ebola Screen: Patient denies exposure to infectious person. Patient denies travel to an Ebola-affected area in the 21 days before illness onset. Initial Sepsis Screen: Does the patient meet any 2 criteria? No. Patient's initial sepsis screen is negative. Does the patient have a suspected source of infection? No. Patient's initial sepsis screen is negative. Risk Assessment: Do you want to hurt yourself or someone else? Patient reports no desire to harm self or others. Onset of symptoms was March 06, 2022. 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 - Social history:: Smoking status: Reported history of juuling and/or vaping. Screenin:05 Abuse screen: Denies threats or abuse. Denies injuries from another. Nutritional ss screening: No deficits noted. Tuberculosis screening: Never had TB. Fall Risk None identified. Assessment: 12:05 General: Appears in no apparent distress. comfortable, Behavior is calm, cooperative, ss Denies fever, feeling ill, fatigue, chills. Pain: Complains of pain in heel of right foot. Neuro: Level of Consciousness is awake, alert, obeys commands, Oriented to person, place, time, situation, Speech is normal, Facial symmetry appears normal, Pupils are PERRLA. Respiratory: Airway is patent Respiratory effort is even, unlabored, Respiratory pattern is regular, symmetrical. EENT: Oral mucosa is moist. Derm: Skin is pink, warm \\T\\ dry. normal. Musculoskeletal: Circulation, motion, and sensation intact. Range of motion: intact in all extremities, Swelling absent. 12:05 Cardiovascular: Capillary refill < 3 seconds is brisk in bilateral fingers. ss 12:05 Injury Description: Puncture sustained to heel of right foot. ss 14:54 Reassessment: Patient appears in no apparent distress at this time. Patient and/or ss family updated on plan of care and expected duration. Pain level reassessed. Foreign body removed by Dr. Wolfe. Awaiting for repeat foot XRAY at this time. Patient denies pain at this time. Patient states feeling better. Patient states symptoms have improved. Vital Signs: 11:44 BP 121 / 67; Pulse 110; Resp 16; Temp 97.9(TE); Pulse Ox 100% on R/A; Weight 73.03 kg; ss Height 5 ft. 5 in. (165.10 cm); Pain 7/10; 14:52 Pulse 82; Resp 16; Pulse Ox 100% on R/A; Pain 0/10; ss 11:44 Body Mass Index 26.79 (73.03 kg, 165.10 cm) ss ED Course: 11:35 Patient arrived in ED. as 11:36 Jr Wiseman PA is PHCP. cp 11:36 Alexander Wolfe MD is Attending Physician. cp 11:46 Triage completed. ss 11:46 Arm band placed on right wrist. ss 12:04 Tati Allen, CLIFFORD is Primary Nurse. ss 12:05 Patient has correct armband on for positive identification. Bed in low position. ss 12:51 XRAY Foot RIGHT 2 View In Process Unspecified. EDMS 15:16 XRAY Foot RIGHT 2 View In Process Unspecified. EDMS 15:38 No provider procedures requiring assistance completed. Patient did not have IV access ss during this emergency room visit. Administered Medications: 12:14 Drug: Tylenol 1000 mg Route: PO; ss 14:50 Follow up: Response: No adverse reaction ss 12:50 Drug: Ativan (LORazepam) 1 mg Route: PO; ss 14:49 Follow up: Response: No adverse reaction; Anxiety decreased ss 13:59 Drug: Lidocaine-Epinephrine -1%: (1:100,000) 10 ml {Note: Administered now by ZANE Rhodes} Volume: 20 ml; Route: Infiltration; 13:59 Drug: Marcaine (bupivacaine) (0.5 %) 10 ml {Note: administered by PA. 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 Exp: ss 11/15/2023. Lot #: [id number]. } Route: IM; Site: left deltoid; 14:50 Follow up: Response: (VIS) Vaccine information sheet provided today. Questions and/or ss concerns addressed. VIS edition date: Feb 14, 2021. 15:38 Drug: Clindamycin 300 mg Route: PO; ss 15:38 Follow up: Response: Medication administered at discharge. ss Medication: 12:05 VIS not applicable for this client. ss Outcome: 15:19 Discharge ordered by . cp 15:38 Discharged to home with crutches, with family. ss 15:38 Condition: good 15:38 Discharge instructions given to patient, family, Instructed on discharge instructions, follow up and referral plans. medication usage, wound care, Demonstrated understanding of instructions, follow-up care, medications, Prescriptions given X 3. 15:39 Patient left the ED. ss Signatures: Dispatcher [employer] Zainab Saucedo Shelby, RN RN ss Page, Corey, PA PA cp Corrections: (The following items were deleted from the chart) 12:09 12:05 Cardiovascular: Capillary refill < 3 seconds is brisk in bilateral fingers ss ss
--- NOTE | 2022-03-07 16:01 | RAD REPORT ---
EXAM DESCRIPTION: RAD - Foot Right 2 View - 03/07/2022 3:14 pm CLINICAL HISTORY: post needle removal COMPARISON: Foot Right 2 View dated 03/07/2022 FINDINGS: No acute fracture. No malalignment. No significant focal degenerative changes. IMPRESSION: No acute osseous abnormality involving the right foot.
[2022-03-07 17:17] VITALS: BP 121/67; TEMP 97.9; O2SAT 100
== END 2022-03-07 15:39 | disposition home or self-care (01) ==
LOC: ER 11:33
PROC: 0JCQ0ZZ Extirpation of Matter from Right Foot Subcutaneous Tissue and Fascia, Open Approach (ICD-10-PCS; principal; 2022-03-07)
DX: S91.341A Puncture wound with foreign body, right foot, initial encounter (principal); Z23 Encounter for immunization
CPT/HCPCS: 90471; 90714; 99283

== ENCOUNTER 2022-05-21 13:48 | Emergency (ER) | payer OTHER ==
--- OUTSIDE RECORDS SUMMARY | 2022-05-21 13:53 | XMS REPORT | Continuity of Care Document ---
:2000 Author Organization [facility] t Address [address] [place] [address] Dr. [address]. [address] [place] [address] Care Team Providers Name Role Phone Asked, No Pcp Primary Care Physician Unavailable Ant MILLER Attending Clinician Unavailable DARCY MCCRAY Attending Clinician Unavailable Shazia Darcy JUAREZ Attending Clinician [phone] DANIEL MATHIS Attending Clinician Unavailable LENORA DANIEL Attending Clinician Unavailable LENORA DANIEL Attending Clinician Unavailable CHRIS SANCHEZ Attending Clinician Unavailable Chris Suh Attending Clinician LAINE AMBROCIO Attending Clinician Unavailable Laine Ward Attending Clinician Gil Samayoa MD Attending Clinician SHAMA BENITEZ Attending Clinician Unavailable Shama Benitez MD Attending Clinician Shama Tubbs Attending Clinician Doctor Unassigned, [place] Attending Clinician Unavailable Ace Donald DO Attending Clinician Miriam Briceno PA-C Attending Clinician Roberto Carlos Izquierdo Attending Clinician Michelle Edouard MD Attending Clinician 1, [facility] Attending Clinician Unavailable Ultrasound, [place] Attending Clinician Unavailable Karla Del Rio MD Attending Clinician Kosta Dubon MD Attending Clinician Payers Payer Name Policy Type Policy Number Effective Date Expiration Date S [place] [employer] [id number] 2020 00:00:00 [place] [id number] 2019 WOMEN 00:00:00 Problems Condition Condition Condition Status Onset Resolution Last Treating Co mments Source Name Details Category Date Date Treatment Clinician Date Other Other Disease Active 2021-07 Univers general general 0-06 [place] of counseling [place] advice and advice 00 Me dical for for Branch contracept contracept edward edward management management Tobacco Tobacco Disease Active 2020-07 Univers use use 0-06 ity of 00:00: [place] 00 Medical Branch Fatigue, Fatigue, Disease Active 2020-07 Unive rs unspecifie unspecifie 0-06 it y of d type d type 00:00: [place] 00 Medical Branch Easy Easy Disease Active 2020-07 Univers bruising bruising 0-06 ity of 00:00: [address] Allergies, Adverse Reactions, Alerts Allergy Allergy Status Severity Reaction(s) Onset Inactive Treating Comm ents Source Name Type Date Date Clinician Clindamy Propensi Active Rash 2020-07 Method i severiano ty to 08-06 st adverse 00:00: Hospita reaction 00 l s to drug NO KNOWN Drug Active Univers ALLERGIE Class ity of S [facility] Social History Social Habit Start Date Stop Date Quantity Comments Source History [facility] o f Alcohol Frequency [place] [facility] History [facility] o f Alcohol Std [place] [facility] Drinks Branch History [facility] o f Alcohol Binge [place] [facility] al Branch Tobacco use and 2022-04-16 2022-04-16 Smokeless tobacco Un iversity of exposure 00:00:00 00:00:00 non-user [facility] Tobacco Comment 2022-04-16 2022-04-16 vapes Universit y of 00:00:00 00:00:00 [facility] Alcohol intake 2022-04-16 2022-04-16 Ex-drinker [facility] 00:00:00 00:00:00 (finding) [facility] History of 2022-04-14 Cigarette Smoker Universi ty of tobacco use 00:00:00 [facility] Exposure to 2021-11-06 2021-11-16 Not sure [facility] SARS-CoV-2 00:00:00 22:02:00 [facility] (event) [place] Alcohol Comment 2021-04-16 2021-04-16 social Universit y of 00:00:00 00:00:00 [facility] Sex Assigned At 2000 2000 [facility] 00:00:00 00:00:00 Hospital Smoking Status Start Date Stop Date Source Tobacco smoking [facility] consumption unknown Ex-smoker 2022-04-16 00:00:00 2022-04-16 University o f [place] 00:00:00 [facility] Current every day smoker 2021-04-16 00:00:00 Uni versity of [facility] Medications Ordered Filled Start Stop Current Ordering Indication Dosage Frequency Signature Comments Components Source Medication Medication Date Date Medication? Clinician (SIG) Name Name metroNIDAZO No [id number] 500mg Take 1 Univers LE (FLAGYL) 11-17 tablet by it y of 500 mg 00:00: 04:59 mouth [place] tablet 00 :00 every 12 Medical (twelve) Branch hours for 7 days. doxycycline No 100mg 100 mg, U nivers hyclate 07-24 Oral, ity of (Vibramycin 01:15: 00:52 [place]CE[place] capsule 00 :00 dose, On Medica l 100 mg Wed Branch 07/23/21 at 1915, DARRYL
Re ason for Anti-Infec tive: Empiric Therapy for Suspected Infection< br>Empiric Therapy Site: Pelvic
Duration of therapy: 72 hours metroNIDAZO No 500mg 500 mg, U nivers LE (FLAGYL) 07-24 Oral, ity of tablet [...]
Duration of therapy: 72 hours metroNIDAZO Yes [id number] 500mg Take 1 Univers LE 500 mg 1-12 tablet by ity o f tablet 00:00: mouth 2 00 (two) Medical times Branch daily. doxycycline Yes [id number] 100mg Take 1 Univers hyclate 100 1-12 capsule by it y of mg capsule 00:00: mouth [place] (two[place] Medical times Branch daily. metroNIDAZO 0 Yes [id number] 500mg Take 1 Univers LE 500 mg 1-12 tablet by ity o f tablet 00:00: mouth 2 [place] 00 (two) Medical times Branch daily. doxycycline 2021- Yes [id number] 100mg Take 1 Univers hyclate 100 1-12 capsule by it y of mg capsule 00:00: mouth [place] (two) Medical times Branch daily. metroNIDAZO 2021-0 Yes [id number] 500mg Take 1 Univers LE 500 mg 1-12 tablet by ity o f tablet 00:00: mouth 2 00 (two) Medical times Branch daily. doxycycline 2021-0 Yes [id number] 100mg Take 1 Univers hyclate 100 1-12 capsule by it y of mg capsule 00:00: mouth [place] (two) Medical times Branch daily. metroNIDAZO 2021-0 Yes [id number] 500mg Take 1 Univers LE 500 mg 1-12 tablet by ity o f tablet 00:00: mouth 2 00 (two) Medical times Branch daily. doxycycline 2021-0 Yes [id number] 100mg Take 1 Univers hyclate 100 1-12 capsule by it y of mg capsule 00:00: mouth [place] (two) Medical times Branch daily. cephalexin 2020-07- No 500mg Q.5D Take 1 Met hodi (Keflex) 08-[address] 500 MG 00:00: 05:59 (500 mg Hospita capsule 00 :00 total) by l mouth 2 (two) times a day for 7 days. cephalexin 2020-07- No 500mg Q.5D Take 1 Met hodi (Keflex) 08-[address] 500 MG 00:00: 05:59 (500 mg Hospita capsule 00 :00 total) by l mouth 2 (two) times a day for 7 days. No known 2020-07 No Univers medications 0-06 ity of 13:53: [address] No known 2020-07 No Univers medications 0-06 ity of 13:53: [address] No known 2020-07 No Univers medications 0-06 ity of 13:53: [address] Immunizations Ordered Filled Immunization Date Status Comments [facility] e Immunization Name Name TDAP (ADACEL) 2019-01-26 Completed University of VACCINE 00:00:00 [facility] TDAP (ADACEL) 2019-01-26 Completed University of VACCINE 00:00:00 [facility] TDAP (ADACEL) 2019-01-26 Completed University of VACCINE 00:00:00 [facility] TDAP (ADACEL) 2019-01-26 Completed University of VACCINE 00:00:00 [facility] TDAP (ADACEL) 2019-01-26 Completed University of VACCINE 00:00:00 [facility] TDAP (ADACEL) 2019-01-26 Completed University of VACCINE 00:00:00 [facility] TDAP (ADACEL) 2019-01-26 Completed University of VACCINE 00:00:00 [facility] Influenza Virus 2018-09-06 Completed Universit y of Vaccine Quad .5 mL 00:00:00 [facility] IM 6+ MO Branch Influenza Virus 2018-09-06 Completed Universit y of Vaccine [place] .5 mL 00:00:00 [place] [facility] IM 6+ MO Branch Influenza Virus 2018-09-06 Completed Universit y of Vaccine Quad .5 mL 00:00:00 [facility] IM 6+ MO Branch Influenza Virus 2018-09-06 Completed Universit y of Vaccine [place] .5 mL 00:00:00 [facility] IM 6+ MO Branch Influenza Virus 2018-09-06 Completed Universit y of Vaccine [place] .5 mL 00:00:00 [facility] IM 6+ MO Branch Influenza Virus 2018-09-06 Completed Universit y of Vaccine [place] .5 mL 00:00:00 [facility] IM 6+ MO Branch Influenza Virus 2018-09-06 Completed Universit y of Vaccine [place] .5 mL 00:00:00 [facility] 6+ MO Branch Vital Signs Vital Name Observation Time Observation Value Comments Source Systolic blood 2021-11-17 03:06:00 118 mm[Hg] Univer sity of pressure [facility] Diastolic blood 2021-11-17 03:06:00 62 mm[Hg] Unive rsity of pressure [facility] Heart rate 2021-11-17 03:06:00 78 /min [facility] Body temperature 2021-11-17 03:06:00 36.33 Yesenia [facility] Res[facility] rate 2021-11-17 03:06:00 16 /min [facility] Body height 2021-11-17 03:06:00 167.6 cm [facility] Body weight 2021-11-17 03:06:00 71.94 kg [facility] BMI 2021-11-17 03:06:00 25.60 kg/m2 [facility] Oxygen saturation in 2021-11-17 03:06:00 100 /min [facility] blood by [facility] Pulse oximetry Branch Systolic blood 2021-07-23 21:46:00 120 mm[Hg] Univer sity of pressure [place] [facility] Diastolic blood 2021-07-23 21:46:00 66 mm[Hg] Unive rsity of pressure [place] [facility] Heart rate 2021-07-23 21:46:00 86 /min Universi ty of [place] [facility] [place] Body temperature 2021-07-23 21:46:00 36.72 Yesenia Univ ersity of [facility] Branch Respiratory rate 2021-07-23 21:46:00 16 /min Univ ersity of [place] [facility] Oxygen saturation in 2021-07-23 21:46:00 100 /min University of Arterial blood by [facility] Pulse oximetry Branch Body weight 2021-07-23 21:45:00 68.04 kg Universi ty of [place] [facility] [place] BMI 2021-07-23 21:45:00 24.21 kg/m2 Universi ty of [place] [facility] Systolic blood 2021-04-16 18:49:00 124 mm[Hg] Univer sity of pressure [place] [facility] Diastolic blood 2021-04-16 18:49:00 78 mm[Hg] Unive rsity of pressure [place] [facility] Heart rate 2021-04-16 18:49:00 102 /min Universi ty of [place] [facility] [place] Body temperature 2021-04-16 18:49:00 36.5 Yesenia Univ ersity of [place] [facility] Respiratory rate 2021-04-16 18:49:00 18 /min Univ ersity of [place] [facility] Body height 2021-04-16 18:49:00 167.6 cm Universi ty of [place] [facility] Body weight 2021-04-16 18:49:00 67.586 kg Universi ty of [place] [facility] BMI 2021-04-16 18:49:00 24.05 kg/m2 Universi ty [facility] Systolic blood 2021-06-07 03:30:00 107 mm[Hg] Method ist [facility] pressure Diastolic blood 2021-06-07 03:30:00 55 mm[Hg] Metho [facility] pressure Heart rate 2021-06-07 03:30:00 78 /min [facility] O[facility] in 2021-06-07 03:30:00 99 /min [facility] Arterial blood by Pulse oximetry Body temperature 2021-06-07 01:02:52 36.72 Yesenia [facility] Respiratory rate 2021-06-07 01:02:52 18 /min [facility] Body height 2021-06-07 01:00:00 167.6 cm [facility] Body weight 2021-06-07 01:00:00 68.04 kg [facility] BMI 2021-06-07 01:00:00 24.21 kg/m2 [facility] Procedures Procedure Date / Time Performing Clinician Source Performed PAP SMEAR-LIQUID BASED-CP 2022-04-16 20:20:00 Darcy Mccray [facility] POCT TEST 2022-04-16 19:23:00 Darcy Mccray [facility] URINALYSIS 2021-11-17 04:22:00 Chris Sanchez [facility] POCT TEST 2021-11-17 04:11:00 Chris Sanchez [facility] NOTICE OF PRIVACY 2021-11-17 02:38:53 Doctor Unassigned, [facility] CONSENT/REFUSAL FOR 2021-11-17 02:38:39 [facility] DIAGNOSIS AND TREATMENT [facility] URINALYSIS 2021-07-23 22:22:00 Laine Ambrocio [facility] CONSENT/REFUSAL FOR 2021-07-23 21:34:17 Doctor Unaabby, [facility] DIAGNOSIS AND TREATMENT [facility] NOTICE OF PRIVACY 2021-07-23 21:34:01 Doctor Unassigned, [facility] PRACTICES [facility] ED REFERRAL TO [place] 2021-06-07 03:28:11 Gil Samayoa [facility] HINDUISM PHYSICIAN ORGANIZATION ECG ED PRELIMINARY 2021-06-07 02:10:24 Gil Samayoa [facility] INTERPRETATION LACTIC ACID LEVEL, SEPSIS 2021-06-07 01:50:[address] [facility] - NOW AND REPEAT 2X EVERY 3 HOURS URINE CULTURE 2021-06-07 01:47:00 Gil Samayoa Ho spital HC COMPLETE BLD COUNT 2021-06-07 01:45:00 [facility] W/AUTO DIFF BASIC METABOLIC PANEL 2021-06-07 01:45:00 [facility] LIPASE LEVEL 2021-06-07 01:45:00 [facility] Ho spital HEPATIC FUNCTION PANEL 2021-06-07 01:45:00 [facility] TROPONIN T 2021-06-07 01:45:00 [facility] Gil Judaism Ho spital PHOSPHORUS LEVEL 2021-06-07 01:45:00 [facility] H ospital MAGNESIUM LEVEL 2021-06-07 01:45:00 [facility] Ho spital CREATINE KINASE, TOTAL 2021-06-07 01:45:00 [facility] (CPK) ESTIMATED GFR 2021-06-07 01:45:00 [facility] Gil Judaism Ho spital ECG 12-LEAD 2021-06-07 01:10:42 [facility] URINALYSIS SCREEN AND 2021-06-07 01:06:00 [facility] MICROSCOPY, WITH REFLEX TO CULTURE HCG QUALITATIVE, URINE 2021-06-07 01:06:00 [facility] SCREEN POC GLUCOSE 2021-06-07 01:04:00 [facility] Gil Judaism Ho spital POCT TEST 2021-04-16 19:21:00 Shama Benitez [facility] Encounters Start End Encounter Admission Attending Care Care Encounter Source Date/Time Date/Time Type Type Clinicians Facility Department ID 2022-05-21 2022-05-21 Emergency X Ant MILLER [facility] ERT [id number] Univers 12:48:00 12:48:00 anabel [facility] 2022-04-16 2022-04-16 Outpatient R SHAZIA [facility] [id number] Univers 13:45:00 15:14:52 DARYC mcgee [facility] 2022-04-16 2022-04-16 Office Shazia [facility] [id number] Univers 13:45:00 15:14:52 Visit Darcy Jones SUSTAINABILITY COACH [id number] ity [facility] [id number] Remy as MATERNAL [phone] [facility] ical & CHILD [address] [place] [address] 2022-03-04 2022-03-04 Outpatient R DELFINA [facility] [id number] Univers 13:30:00 13:30:00 NINATHANG allen [facility] 2022-01-28 2022-01-28 Outpatient R FREDY LENORA [facility] [id number] Univers 15:00:00 15:00:00 FREDY LENORACHENCHO little [facility] 2021-12-16 2021-12-16 Outpatient R SHAZIA [facility] [id number] Univers 08:15:00 08:15:00 DARCY allen [facility] 2021-12-05 2021-12-05 [facility] [id number] Univers 08:00:00 08:00:00 DARCY allen [facility] 2021-11-16 2021-11-17 Emergency X BEATA, [facility] ERT [id number] Univers 22:11:00 01:15:00 [facility] 2021-11-16 2021-11-17 [facility] [id number] Univers 22:11:00 01:15:00 Chris [facility] [id number] ity [facility] 4.2.7.2.686 [facility] [id number] [address] 2021-08-07 2021-08-07 Outpatient Ama MATHIS [facility] [id number] Univers 10:45:00 10:45:00 DANIEL allen [facility] 2021-07-31 2021-07-31 Outpatient R SHAZIA [facility] [id number] Univers 09:45:00 09:45:00 DARCY allen [facility] 2021-07-23 2021-07-23 Emergency [facility] [id number] Univers 15:46:00 18:59:00 LAINE itfallon [facility] 2021-07-23 2021-07-23 Emergency Cristóbal [facility] [id number] Univers 15:46:00 18:59:00 Laine GOODE [id number] i [facility] 4.2.7.2.686 [facility] [id number] [address] 2021-06-06 2021-06-06 Emergency Samayoa, 1.2.840.1 [id number] Methodi 19:08:00 21:42:[address] 3.430.2.7 Hospit a .3.224301 l .8 2021-06-06 2021-06-06 Emergency Samayoa, 1.2.840.1 [id number] Methodi 19:08:00 21:42:[address] 3.430.2.7 Hospit a .3.180587 l .8 2021-06-06 2021-06-06 Travel 1.2.840.1 1.2.094.480 [id number] Methodi 00:00:00 00:00:[address] 3.430.2.7 0.2.7.3.698 Ho spita .3.104355 084.8 l .8 2021-06-06 2021-06-06 Travel 1.2.840.1 1.2.858.576 [id number] Methodi 00:00:00 00:00:[address] 3.430.2.7 0.2.7.3.698 Ho spita .3.660141 084.8 l .8 2021-04-30 2021-04-30 Outpatient R EMMANUEL [facility] [id number] Univers 15:15:00 15:15:00 SHAMA little [facility] 2021-04-17 2021-04-17 Telephone Emmanuel [facility] 1.2.840.114 [id number] Univers 00:00:00 00:00:00 Shama SUSTAINABILITY COACH [id number] it y of [facility] 4.2.7.2.686 Remy as MATERNAL [phone] [facility] & CHILD [address] [place] [address] 2021-04-16 2021-04-16 Office Emmanuel [facility] [id number] Univers 13:38:41 14:26:57 Visit Shama Saenz SUSTAINABILITY COACH 350.1.13.10 it y of [facility] 4.2.7.2.686 Remy as MATERNAL [phone] [facility] ical & CHILD [address] [place] [address] 2021-04-16 2021-04-16 Outpatient R EMMANUEL [facility] [id number] Univers 09:30:00 09:30:00 SHAMA little [facility] 2021-04-16 2021-04-16 Orders Doctor CASEY 1.2.840.114 [id number] Univers 00:00:00 00:00:00 Only Unassigned, HENNY 350.1.13.10 ity of [place] [facility] 4.2.7.2.686 Remy as [phone] [address] 2020-10-01 2020-10-01 Patient Odilon [facility] 1.2.840.114 [id number] Univers 00:00:00 00:00:00 Outreach Ace NOVOA 350.1.13.10 i ty of [facility] 4.2.7.2.686 [place] [id number] Wi dical [address] [place] [address] 2019-03-28 2019-03-28 [facility]ine [facility] 1.2.522.971 [id number] 09:25:07 10:07:02 Miriam Goode 350.1.13.10 Visit [place] 4.2.7.2.686 Professio [id number] [address] 2019-03-28 2019-03-28 [facility] 1.2.403.550 [id number] Univers 09:25:07 10:07:02 Miriam Goode 350.1.13.10 ity of Visit [place] 4.2.7.2.686 [place] Profess[place] [id number] [address] 2019-03-24 2019-03-24 Routine Kaity, NMMB 1.2.764.306 [id number] 10:47:40 11:22:49 Miriam [place] 350.1.13.10 Visit [place] 4.2.7.2.686 Professio [phone] [address] 2019-03-24 2019-03-24 Routine Kaity, NMMB 1.2.631.235 [id number] [facility] 10:47:40 11:22:49 Miriam [place] 350.1.13.10 ity of Visit [place] 4.2.7.2.686 [place] Profess[place] [phone] [address] 2019-03-23 2019-03-23 Emergency Juan J, [facility] [id number] 14:51:40 16:59:00 Roberto Carlos A [place] 350.1.13.10 [place] 4.2.7.2.686 [place] [phone] [facility] 2019-03-23 2019-03-23 Emergency Juan J [facility] [id number] [facility] [place] [facility] 14:51:40 16:59:00 Roberto Carlos A [place] 350.1.13.10 i ty of [place] 4.2.7.2.686 [place] [id number] [address] 2019-03-21 2019-03-21 Routine Michelle Edouard NMM[facility] 1.2.881.978 [id number] 11:02:32 11:48:59 Cam [place] 350.1.13.10 Visit [place] 4.2.7.2.686 Professio [id number] [address] 2019-03-21 2019-03-21 Routine Michelle Edouard [facility] 1.2.933.186 [id number] [facility] [place] [facility] 11:02:32 11:48:59 Cam [place] 350.1.13.10 ity of [place] 4.2.7.2.686 [place] Profess[place] [phone] [address] 2019-03-21 2019-03-21 Telephone Michelle Edouard [facility] 1.2.840.114 [id number] 00:00:00 00:00:00 Cam [place] 350.1.13.10 [place] 4.2.7.2.686 Professio [phone] [address] 2019-03-21 2019-03-21 Telephone Michelle Edouard [facility] 1.2.840.114 [id number] [facility] [place] [facility] 00:00:00 00:00:00 Cam [place] 350.1.13.10 i ty of [place] 4.2.7.2.686 [place] Profess[place] [phone] [address] 2019-03-16 2019-03-16 Peripheral Vascular Tech 1, Adc Lab [facility] 1.2.840.114 [id number] 15:34:30 15:49:30 Visit [place] 350.1.13.10 [place] 4.2.7.2.686 [place] [id number] [facility] 2019-03-16 2019-03-16 Peripheral Vascular Tech 1, Adc Lab [facility] 1.2.840.114 [id number] [facility] [place] [facility] 15:34:30 15:49:30 Visit Michelle Edouard Luciano 350.1.13.10 ity of [place] 4.2.7.2.686 [place] [phone] [address] 2019-03-15 2019-03-15 Routine [facility] 1.2.982.110 [id number] 16:16:09 17:23:12 Miriam [place] 350.1.13.10 Visit [place] 4.2.7.2.686 Professio [phone] [address] 2019-03-15 2019-03-15 [facility]ine [facility] [id number] [facility] 16:16:09 17:23:12 Miriam [place] 350.1.13.10 ity of Visit [place] 4.2.7.2.686 [place] Profess[place] [phone] [address] 2019-03-15 2019-03-15 Orders Doctor CASEY 1.2.840.114 [id number] 00:00:00 00:00:00 Only Unassigned, HENNY 350.1.13.10 [place] [facility] 4.2.7.2.686 [id number] 2019-03-15 2019-03-15 Orders Doctor CASEY 1.2.840.114 [id number] Univers 00:00:00 00:00:00 Only Unassigned, HENNY 350.1.13.10 ity of [place] [facility] 4.2.7.2.686 Remy as [id number] [facility] 009 [place] 2019-03-08 2019-03-08 Peripheral Vascular Tech Ultrasound, Viktoriatania [facility] 1.2 .840.114 [id number] Univers 15:30:49 16:00:49 Visit Karla Del Rio SUSTAINABILITY COACH 350.1.13.10 ity of [facility] 4.2.7.2.686 Remy as MATERNAL [phone] [facility] ical & CHILD [address] [place] [address] 2019-03-01 2019-03-01 Routine Michelle Edouard [facility] 1.2.222.976 [id number] Univers 14:33:20 15:01:09 Jose Maria Goode 350.1.13.10 ity of Visit [place] 4.2.7.2.686 [place] [phone] [facility] 2019-02-16 2019-02-16 [facility] Ling [facility] 1.2.840.114 [id number] Univers 10:21:27 23:59:00 Encounter Kosta Goode 350.1.13.10 ity of [place] 4.2.7.2.686 [place] [phone] [facility] 806 [place] 2019-02-16 2019-02-16 Routine Michelle Edouard [facility] 1.2.245.581 [id number] Univers 09:06:04 10:07:47 Jose Maria Goode 350.1.13.10 ity of [place] 4.2.7.2.686 [place] [phone] [facility] 134 [facility] 2019-02-16 2019-02-16 Orders Doctor CASEY 1.2.840.114 [id number] Univers 00:00:00 00:00:00 Only Unassigned, HENNY 350.1.13.10 ity of [place] [facility] 4.2.7.2.686 Remy as [id number] [address] 2019-02-04 2019-02-04 Telephone Ling [facility] 1.2.840.114 [id number] Univers 00:00:00 00:00:00 Kosta Goode 350.1.13.10 i ty of [place] 4.2.7.2.686 [place] [phone] Wi dical [facility] 134 [facility] 2019-02-03 2019-02-03 [facility] 1.2.840.114 [id number] Univers 00:00:00 00:00:00 Kosta Goode 350.1.13.10 i ty of [place] 4.2.7.2.686 [place] [phone] [facility] 134 [facility] Results Test Description Test Time Test Comments Results Result Comments Source POCT TEST 2022-04-16 19:23:00 Test Item Value Reference Range Interpretation Comme nts POCT PREG (test code = 1605) Negative On board controls acceptable with C Line (test code = 3574) Yes POCT PREG LOT # (test code = 3575) POCT PREG TEST DATE (test code = 3576) [facility] [id number] 19:23:00 Test Item Value Reference Range Interpretation Comments POCT PREG (test code = 1605) Negative On board controls acceptable with C Yes Line (test code = 3574) POCT PREG LOT # (test code = 3575) POCT PREG TEST DATE (test code = 3576) [facility] [id number] 04:11:00 Test Item Value Reference Range Interpretation Comments POCT PREG (test code = 1605) Negative On board controls acceptable with Negative C Line (test code = 3574) POCT PREG LOT # (test code = 3575) [id number] POCT PREG TEST DATE (test 04/10/23 code = 3576) Lab Interpretation (test code = Normal 26688-6) [facility] 12 [id number] 00:08:58 Test Item Value Reference Range Interpretation Comments Ventricular rate (test code = 253) Atrial rate (test code = 255) NE interval (test code = 266) QRSD interval [...] Hazel MD ([id number]) on 07/02/2021 6:08:56 PM [facility] 12 [id number] 00:08:58 Test Item Value Reference Range Interpretation Comments Ventricular rate (test code = 253) Atrial rate (test code = 255) NE interval (test code = 266) QRSD interval [...] Hazel MD ([id number]) on 07/02/2021 6:08:[address] [facility] [id number] 12:47:38 Test Item Value Reference Range Interpretation Comments Urine culture Mixed arielle Specimen isolate (test <=10-3 col/cc InformationSp ecimen code = 21649-3) Source: [facility] Site: [facility] [id number] 12:47:38 Test Item Value Reference Range Interpretation Comments Urine culture Mixed arielle Specimen isolate (test <=10-3 col/cc InformationSp ecimen code = 11912-2) Source: Urin eSpecimen Site: [facility] ED Preliminary Interpretation - Not an [id number] 02:10:24 Test Item Value Reference Range Interpretation Comments ABDIRAHMAN (test code = ABDIRAHMAN) iGl Samayoa MD 06/06/2021 9:29 [facility] ED Preliminary Interpretation - Not an OrderPerformed by: Gil Samayoa MDAuthorized by: Gil Samayoa MD ECG reviewed by ED Physician in the absence of a chief cook: yes Interpretation: Interpretation: abnormal Rate: ECG rate: 77 ECG rate assessment: normal Rhythm: Rhythm: sinus rhythm Ectopy: Ectopy: none QRS: QRS axis: Right QRS intervals: NormalConduction: Conduction: normal ST segments: ST segments: NormalT waves: T waves: normal Lab Interpretation Abnormal (test code = 22128-1) [facility] ED Preliminary Interpretation - Not an [id number] 02:10:24 Test Item Value Reference Range Interpretation Comments ABDIRAHMAN (test code = ABDIRAHMAN) Gil Samayoa MD 06/06/2021 9:29 [facility] ED Preliminary Interpretation - Not an OrderPerformed by: Gil Samayoa MDAuthorized by: Gil Samayoa MD ECG reviewed by ED Physician in the absence of a chief cook: yes Interpretation: Interpretation: abnormal Rate: ECG rate: 77 ECG rate assessment: normal Rhythm: Rhythm: sinus rhythm Ectopy: Ectopy: none QRS: QRS axis: Right QRS intervals: NormalConduction: Conduction: normal ST segments: ST segments: NormalT waves: T waves: normal Lab Interpretation Abnormal (test code = 90976-3) [facility] [id number] 01:10:20 Test Item Value Reference Range Interpretation Comments POC glucose (test 86 mg/dL 65-100 Records Management Assistant N le: Matthew code = 45664-3) Chris e ID: [id number] [facility] [id number] 01:10:20 Test Item Value Reference Range Interpretation Comments POC glucose (test 86 mg/dL 65-100 Records Management Assistant N le: Matthew code = 30949-1) Chris e ID: [id number] [facility] [id number] 19:21:00 Test Item Value Reference Range Interpretation Comments POCT PREG (test code = 1605) Negative On board controls acceptable with C Yes Line (test code = 3574) POCT PREG LOT # (test code = 3575) POCT PREG TEST DATE (test code = 3576) [facility] [id number] 19:21:00 Test Item Value Reference Range Interpretation Comments POCT PREG (test code = 1605) Negative On board controls acceptable with C Yes Line (test code = 3574) POCT PREG LOT # (test code = 3575) POCT PREG TEST DATE (test code = 3576) [facility]
[2022-05-21 14:46] LABS: Absolute Lymphocytes (CBC) 1.9 K/uL (0.7-4.9); Hematocrit 38.8 % (36.0-45.0); Lymphocytes % 30.2 % (15.3-44.8); MCV 90.7 fL (80-100); MPV 7.9 fL (7.6-11.3); RBC Red Blood Cell Count 4.28 M/uL (3.86-4.86)
[2022-05-21 14:51] LABS: Urine Blood Negative (Negative); Urine Glucose Negative (Negative); Urine Protein Negative (Negative); Urine Specific Gravity >=1.030 (1.005-1.030); Urine pH 6.5 (5.0-7.0)
[2022-05-21 15:08] LABS: Urine Specific Gravity/Preg >1.030 (1.005-1.030)
[2022-05-21 15:11] LABS: Potassium 3.7 mmol/L (3.5-5.1)
--- NOTE | 2022-05-21 15:59 | RAD REPORT ---
EXAM DESCRIPTION: US - TRANSVAG OB - 05/21/2022 3:52 pm CLINICAL HISTORY: ABD CRAMPING, COMPARISON: No comparisons FINDINGS: Uterus measures 9.2 x 4.9 x 5.2 cm. The endometrial echo complex measures 13 millimeters. No IUP identified. The right ovary measures 2.7 x 1.6 x 3.1 cm with volume of 7 cc. The left ovary measures 2.7 x 3 x 2. 3 cm with volume of 9.9 cc. Bilateral ovarian blood flow is present. IMPRESSION: No IUP identified. Therefore, cannot exclude early ectopic, early normal , or f helga first trimester . Bilateral ovarian blood flow is present.
--- NOTE | 2022-05-21 16:03 | EDPHYS ---
Physician Documentation [facility] Name: Natacha Porter Age: 22 yrs Sex: Female : 2000 Arrival Date: 05/21/2022 Time: 13:50 Bed 12 Private MD: ED Physician Alexander Wolfe HPI: 05/21 14:25 This 22 yrs old Female presents to ER via Unassigned with complaints of 5wks , en Abdominal Cramping. 14:25 22-year-old female G5, 5 weeks EGA by LMP on 04/16 presents to ED with right sided en abdominal cramping. She has mild nausea without vomiting. No fevers, chills, dysuria, hematuria, vaginal bleeding or discharge. She has not established care for this yet.. AUTHOR AGENT: 14:32 LMP 04/18/2022 [facility] Historical: - PMHx: 14:32 acid reflux; Asthma; [facility] - Immunization history:: Adult Immunizations up to date. - Social history:: Smoking status: Patient reports the use of cigarette tobacco products, Patient/guardian denies using tobacco, but has a distant history of tobacco abuse. ROS: 14:25 Constitutional: Negative for fever, chills, and weight loss. en 14:25 Abdomen/GI: Positive for nausea, Negative for vomiting, diarrhea. 14:25 : Positive for pelvic pain, Right-sided pelvic pain radiating to right flank, Negative for hematuria, burning with urination, difficulty urinating, vaginal bleeding, vaginal discharge, vaginal itching. 14:25 All other systems are negative. Exam: 14:25 Constitutional: This is a well developed, well nourished patient who is awake, alert, en and in no acute distress. 14:25 Constitutional: The patient appears in no acute distress, alert, awake. 14:25 Eyes: Conjunctiva: normal, no exudate, no injection. 14:25 ENT: Posterior pharynx: Airway: patent. 14:25 Cardiovascular: Rate: normal, Rhythm: regular, Pulses: Heart sounds: normal, no murmur, no rub, no gallop. 14:25 Respiratory: the patient does not display signs of respiratory distress, Respirations: normal, Breath sounds: are clear throughout, no rales, rhonchi, no wheezing. 14:25 Abdomen/GI: Inspection: abdomen appears normal, Bowel sounds: normal, in all quadrants, Palpation: abdomen is soft and non-tender, in all quadrants. 14:25 Back: CVA tenderness, is absent. 14:25 Neuro: Orientation: is normal, appropriate for stated age, to person, place \T\ time. 14:25 Psych: Behavior/mood is pleasant, cooperative, Affect is calm. Vital Signs: 14:30 BP 122 / 70; Pulse 101; Resp 16; Temp 98.3; Pulse Ox 98% ; Weight 72.57 kg; Height 5 [facility] ft. 6 in. (167.64 cm); 14:39 BP 123 / 77; Pulse 99; Resp 18; Pulse Ox 100% on R/A; ld1 15:25 BP 122 / 76; Pulse 91; Resp 18; Pulse Ox 100% on R/A; Pain 0/10; ld1 16:28 BP 126 / 86; Pulse 95; Resp 18; Pulse Ox 100% on R/A; Pain 0/10; ld1 14:30 Body Mass Index 25.82 (72.57 kg, 167.64 cm) [facility] MDM: 13:57 Patient medically screened. en 14:25 Differential diagnosis: Discomforts of early , UTI, threatened miscarriage, en ectopic . Data reviewed: vital signs, nurses notes, lab test result(s), radiologic studies, ultrasound. ED course: Will check labs and ultrasound.. 15:50 ED course: Spoke with patient at length regarding early . Discussed trending en beta hCGs. She did have the ultrasound done, but I anticipate that they will not build to see anything. Encourage patient to establish with AUTHOR AGENT for serial hCGs. 16:01 ED course: Ultrasound unable to identify and confirm IUP therefore unable to rule out en ectopic versus early versus spontaneous . Spoke with patient regarding serial hCGs. Will DC home with Zofran and close OB follow-up. Daily return warnings reviewed. 05/21 13:57 Order name: Abo/rh Typing; Complete Time: 15:24 snw 05/21 13:57 Order name: Basic Metabolic Panel; Complete Time: 15:24 snw 05/21 13:57 Order name: CBC with Diff; Complete Time: 15:24 snw 05/21 13:57 Order name: Quantitative Hcg; Complete Time: 15:24 snw 05/21 14:51 Order name: Urine Dipstick-Ancillary; Complete Time: 15:24 EDMS 05/21 14:52 Order name: Urine --Ancillary (enter results); Complete Time: 15:24 kj1 05/21 13:57 Order name: IV Saline Lock; Complete Time: 14:39 snw 05/21 13:57 Order name: Labs collected and sent; Complete Time: 14:39 snw 05/21 13:57 Order name: NPO; Complete Time: 14:20 snw 05/21 13:57 Order name: Urine Dipstick-Ancillary (obtain specimen); Complete Time: 14:46 snw 05/21 15:47 Order name: TRANSVAG OB; Complete Time: 16:01 EDMS Administered Medications: No medications were administered Disposition: 17:17 Co-signature as Attending Physician, Alexander Wolfe MD. rn Disposition Summary: 05/21/22 16:01 Discharge Ordered Location: Home en Problem: new en Symptoms: are unchanged en Condition: Stable en Diagnosis - Weeks of gestation of , unspecified or less than 10 weeks en Followup: en - With: - When: 2 - 3 days - Reason: Re-evaluation by your physician Discharge Instructions: - Discharge Summary Sheet en - Abdominal Pain During , Ivos-il-Uypk en Forms: - Medication Reconciliation Form en - Thank You Letter en - Family Work Release ld1 - Antibiotic Education en - Prescription Opioid Use en Prescriptions: - Zofran 4 mg Oral Tablet - take 1 tablet by ORAL route every 12 hours As needed; 20 tablet; Refills: 0, en Product Selection Permitted Signatures: Dispatcher [employer] EDMS Sophia East, CORRIDOR REDEVELOPMENT MANAGER-C CORRIDOR REDEVELOPMENT MANAGER-Csnw Alexander Wolfe MD MD rn Rees, Jessica, RN RN jh5 Lula Rdz PA PA en Corrections: (The following items were deleted from the chart) 15:47 15:01 1st Trimest Single 1st Fetus+US.RAD.BRZ ordered. EDMS EDMS
--- NOTE | 2022-05-21 16:03 | ER ---
Nurse's Notes [facility] Name: Natacha Porter Age: 22 yrs Sex: Female : 2000 Arrival Date: 05/21/2022 Time: 13:50 Bed 12 Private MD: Diagnosis: Weeks of gestation of , unspecified or less than 10 weeks Presentation: 05/21 14:30 Chief complaint: Patient states: started having bad cramps lower abdomen and into back jh5 since yesterday; sharp pains. Coronavirus screen: Vaccine status: Patient reports being unvaccinated. Client denies travel out of the [place] in the last 14 days. Ebola Screen: Patient negative for fever greater than or equal to 101.5 degrees Fahrenheit, and additional compatible Ebola Virus Disease symptoms Patient denies exposure to infectious person. Patient denies travel to an Ebola-affected area in the 21 days before illness onset. Initial Sepsis Screen: Does the patient meet any 2 criteria? No. Patient's initial sepsis screen is negative. Does the patient have a suspected source of infection? No. Patient's initial sepsis screen is negative. Risk Assessment: Do you want to hurt yourself or someone else? Patient reports no desire to harm self or others. 14:30 Method Of Arrival: Ambulatory [facility] 14:30 Acuity: CARMEN 3 jh5 Triage Assessment: 14:32 General: Appears in no apparent distress. uncomfortable, Behavior is calm, cooperative, jh5 appropriate for age. Pain: Complains of pain in abdomen. GI: Reports cramping. HEAD OF CYTOGENETICS: 14:32 LMP 04/18/2022 [facility] Historical: - PMHx: 14:32 acid reflux; Asthma; jh5 - Immunization history:: Adult Immunizations up to date. - Social history:: Smoking status: Patient reports the use of cigarette tobacco products, Patient/guardian denies using tobacco, but has a distant history of tobacco abuse. Screenin:39 Abuse screen: Denies threats or abuse. Denies injuries from another. Nutritional ld1 screening: No deficits noted. Tuberculosis screening: No symptoms or risk factors identified. Fall Risk None identified. Assessment: 14:39 General: Appears in no apparent distress. comfortable, Behavior is calm, cooperative, ld1 appropriate for age. Pain: Denies pain. Neuro: Level of Consciousness is awake, alert, obeys commands, Oriented to person, place, time, situation. Cardiovascular: Capillary refill < 3 seconds Patient's skin is warm and dry. Respiratory: Airway is patent Respiratory effort is even, unlabored. GI: Abdomen is round non-distended, Bowel sounds present X 4 quads. Abd is soft Abdomen is tender to palpation X 4 quads. Reports lower abdominal pain, upper abdominal pain, cramping. : No signs and/or symptoms were reported regarding the genitourinary system. EENT: No signs and/or symptoms were reported regarding the EENT system. Derm: No signs and/or symptoms reported regarding the dermatologic system. Musculoskeletal: No signs and/or symptoms reported regarding the musculoskeletal system. 15:25 Reassessment: Patient appears in no apparent distress at this time. Patient and/or ld1 family updated on plan of care and expected duration. Pain level reassessed. Patient is alert, oriented x 3, equal unlabored respirations, skin warm/dry/pink. 16:29 Reassessment: Patient appears in no apparent distress at this time. Patient and/or ld1 family updated on plan of care and expected duration. Pain level reassessed. Patient is alert, oriented x 3, equal unlabored respirations, skin warm/dry/pink. ERP at bedside. Patient denies pain at this time. Vital Signs: 14:30 BP 122 / 70; Pulse 101; Resp 16; Temp 98.3; Pulse Ox 98% ; Weight 72.57 kg; Height 5 5 ft. 6 in. (167.64 cm); 14:39 BP 123 / 77; Pulse 99; Resp 18; Pulse Ox 100% on R/A; ld1 15:25 BP 122 / 76; Pulse 91; Resp 18; Pulse Ox 100% on R/A; Pain 0/10; ld1 16:28 BP 126 / 86; Pulse 95; Resp 18; Pulse Ox 100% on R/A; Pain 0/10; ld1 14:30 Body Mass Index 25.82 (72.57 kg, 167.64 cm) 5 ED Course: 13:50 Patient arrived in ED. mr 13:56 Sophia East FNP-C is PHCP. snw 13:56 Alexander Wolfe MD is Attending Physician. snw 13:56 PHCP role handed off by Sophia East FNP-C en 13:56 [facility] en 14:20 Kanika Lerner, RN is Primary Nurse. ld1 14:32 Triage completed. [facility] 14:32 Arm band placed on right wrist. 5 14:39 Patient has correct armband on for positive identification. Placed in gown. Bed in low ld1 position. Call light in reach. Side rails up X2. monitoring engineer on. Pulse ox on. NIBP on. Door closed. Noise minimized. Warm blanket given. 14:39 Inserted saline lock: 20 gauge in left antecubital area, using aseptic technique. Blood ld1 collected. Missed attempt(s): 20 gauge in right antecubital area. 14:39 No provider procedures requiring assistance completed. ld1 15:54 TRANSVAG OB In Process Unspecified. EDMS 16:01 Jaziel Dolan MD is Referral Physician. en 16:27 IV discontinued, intact, bleeding controlled, No redness/swelling at site. ld1 Administered Medications: No medications were administered Medication: 14:39 VIS not applicable for this client. ld1 Outcome: 16:01 Discharge ordered by . en 16:27 Discharged to home ambulatory. ld1 16:27 Condition: stable 16:27 Discharge instructions given to patient, Instructed on discharge instructions, follow up and referral plans. medication usage, Demonstrated understanding of instructions, follow-up care, medications, Prescriptions given X 1. 16:29 Patient left the ED. ld1 Signatures: Dispatcher [employer] EDOK Sophia East FNP-C FNP-[facility] Lety Lockett mr Kanika Lerner, RN RN ld1 Cee Cotton RN RN [facility] Lula Rdz PA PA en
== END 2022-05-21 16:29 | disposition home or self-care (01) ==
LOC: ER 13:48
DX: O26.891 Other specified pregnancy related conditions, first trimester (principal); J45.909 Unspecified asthma, uncomplicated; K21.9 Gastro-esophageal reflux disease without esophagitis; Z3A.01 Less than 8 weeks gestation of pregnancy; Z87.891 Personal history of nicotine dependence
CPT/HCPCS: 36415; 76813; 80048; 81003; 81025; 84702; 85025; 86900; 86901; 99284